=== PATIENT | female | born 1940 | race Caucasian/White ===

== ENCOUNTER → 2018-08-05 | Outpatient (REF) | payer OTHER | LOC: M LAB REF 16:20 | DX: R20.2 Paresthesia of skin (principal) | CPT/HCPCS: 82607 ==

== ENCOUNTER 2021-04-24 18:18 | Emergency (ER) | payer MEDICARE, OTHER ==
[~2021-04-24] VITALS: Ht 160 cm; Wt 64.7 kg
[2021-04-24] MEDS ORDERED: GABA-1171 (18:38)
[2021-04-24] MEDS ORDERED: LEVO50TA5 (18:38)
--- NOTE | 2021-04-24 19:12 | REP ---
INDICATION: FALL COMPARISON: None. TECHNIQUE: AP and lateral views of the left forearm FINDINGS: There is a comminuted intra-articular fracture of the distal radius with overlying soft tissue swelling. There is area of focal soft tissue swelling and possible laceration over the mid forearm. IMPRESSION: Comminuted intra-articular fracture of the distal radial metaphysis. Soft tissue swelling and possible laceration over the mid forearm. <Electronically signed by Roel Langford > 04/24/21 [id number]
--- NOTE | 2021-04-24 19:13 | REP ---
INDICATION: FALL COMPARISON: None. TECHNIQUE: AP, lateral, bilateral oblique views left wrist. FINDINGS: There is a comminuted intra-articular fracture involving the distal radial metaphysis with dorsal angulation and overlying soft tissue swelling. Remainder of the examination demonstrates osteopenia and degenerative changes. IMPRESSION: Comminuted intra-articular fracture of the distal radial metaphysis with dorsal angulation and soft tissue swelling. <Electronically signed by Roel Langford > 04/24/21 [id number]
--- NOTE | 2021-04-24 19:14 | REP ---
INDICATION: FALL COMPARISON: None. TECHNIQUE: AP, lateral, bilateral oblique views left hand. FINDINGS: Age-related osteopenia and advanced generalized osteoarthritic degenerative changes. Evaluation is limited by positioning. There appears to be a comminuted intra-articular fracture involving the distal radius. IMPRESSION: Comminuted intra-articular fracture of the distal radius. Osteopenia and advanced degenerative changes throughout the hand. <Electronically signed by Roel Langford > 04/24/21 [id number]
[2021-04-24] MEDS ORDERED: ACETAMINOPHEN 325 MG TAB PO ONE (19:40)
[2021-04-24] MEDS ORDERED: LIDOCAINE 1% MDV 20ML VIAL SC ONE (19:45)
[2021-04-24] MEDS ORDERED: CEPH500C PO (20:54)
[2021-04-24] MEDS ORDERED: OXYCODONE/APAP 5MG/325MG(BULK FOR ED) 1 TABLET PO ONE (21:05)
[2021-04-24 21:12] VITALS: BP 139/67
== END 2021-04-24 21:38 | disposition home or self-care (01) ==
LOC: M ED 18:18
DX: S52.502A Unspecified fracture of the lower end of left radius, initial encounter for closed fracture (principal); S51.812A Laceration without foreign body of left forearm, initial encounter; S50.11XA Contusion of right forearm, initial encounter; W18.39XA Other fall on same level, initial encounter; Y92.018 Other place in single-family (private) house as the place of occurrence of the external cause; E03.9 Hypothyroidism, unspecified; Z79.899 Other long term (current) drug therapy; Z79.890 Hormone replacement therapy; Z88.5 Allergy status to narcotic agent; Z88.8 Allergy status to other drugs, medicaments and biological substances

== ENCOUNTER → 2022-04-24 | Outpatient (CLI) | payer MEDICARE ==
[~2022-04-24] MED LIST: CEPH500C PO; GABA-1171; LEVO50TA5
== END ==
LOC: M WHC 11:04
PROVIDERS: ATTEND Internal Medicine
DX: Z12.31 Encounter for screening mammogram for malignant neoplasm of breast (principal); M81.0 Age-related osteoporosis without current pathological fracture; Z13.820 Encounter for screening for osteoporosis; M85.88 Other specified disorders of bone density and structure, other site; M85.851 Other specified disorders of bone density and structure, right thigh; M85.852 Other specified disorders of bone density and structure, left thigh

== ENCOUNTER 2022-07-14 18:33 | Emergency (ER) | payer MEDICARE ==
[~2022-07-14] VITALS: Ht 160 cm; Wt 66.1 kg
[2022-07-14 18:33] VITALS: BP 160/98
[2022-07-14] MEDS ORDERED: LEVO75TA4 (18:44)
[2022-07-14] MEDS ORDERED: FLUORESCEIN OPHTH 1 MG STRIP OU ONE (20:10)
[2022-07-14] MEDS ORDERED: PROPARACAINE 0.5% OPHTH SOL 15ML OU ONE (20:10)
[2022-07-14] MEDS ORDERED: CIPROFLOXACIN 0.3% OPHTH SOLN 2.5ML OD ONE (20:30)
== END 2022-07-14 20:39 | disposition home or self-care (01) ==
LOC: M ED 18:33
DX: S05.01XA Injury of conjunctiva and corneal abrasion without foreign body, right eye, initial encounter (principal); W22.8XXA Striking against or struck by other objects, initial encounter

== ENCOUNTER → 2023-03-22 | Outpatient (REF) | payer MEDICARE ==
[~2023-03-22] MED LIST changes: +LEVO75TA4
== END ==
LOC: M LAB REF 16:29
PROVIDERS: ATTEND Internal Medicine
DX: R30.0 Dysuria (principal)

== ENCOUNTER → 2024-02-05 | Outpatient (CLI) | payer MEDICARE | LOC: M PLAIMG 09:53 | PROVIDERS: ATTEND Internal Medicine | DX: R51.9 Headache, unspecified (principal) ==

== ENCOUNTER → 2024-05-27 | Outpatient (CLI) | payer MEDICARE | LOC: M WHC 12:31 | PROVIDERS: ATTEND Internal Medicine | DX: Z12.31 Encounter for screening mammogram for malignant neoplasm of breast (principal); M81.0 Age-related osteoporosis without current pathological fracture ==

== ENCOUNTER → 2024-06-02 | Outpatient (CLI) | payer MEDICARE | LOC: M WHC 09:36 | PROVIDERS: ATTEND Internal Medicine | DX: R92.2 Inconclusive mammogram (principal) ==

== ENCOUNTER → 2024-07-08 | Outpatient (REF) | payer MEDICARE ==
[2024-07-08 19:43] LABS: VITAMIN B12 LEVEL 1016 PG/ML (211-911)
[2024-07-08 19:45] LABS: FOLATE 21.5 NG/ML (>5.4)
[2024-07-08 20:08] LABS: HIV 1&2 SCREEN NEGATIVE (NEGATIVE)
== END ==
LOC: M LAB REF 16:17
PROVIDERS: ATTEND Internal Medicine
DX: Z98.84 Bariatric surgery status (principal); F03.90 Unspecified dementia, unspecified severity, without behavioral disturbance, psychotic disturbance, mood disturbance, and anxiety

== ENCOUNTER 2025-02-23 16:34 | Observation (INO) | payer MEDICARE ==
[~2025-02-23] VITALS: Ht 160 cm; Wt 56.1 kg
[~2025-02-23 16:34] MED LIST changes: -GABA-1171; +GABA-1171 PO; -LEVO75TA4; +LEVO75TA4 PO
[2025-02-23] MEDS ORDERED: SERT25TA21 PO (16:54)
[2025-02-23 18:00] LABS: HEMATOCRIT 38.7 % (36.0-47.0); HEMOGLOBIN 12.4 g/dl (12.0-15.5); MEAN CORPUSCULAR HEMOGLOBIN 30.9 pg (27.0-33.0); MEAN CORPUSCULAR VOLUME 96.5 fl (80.0-96.0); PLATELET COUNT, AUTOMATED 207 10^3/uL (150-450); RED BLOOD COUNT 4.01 10^6/uL (4.00-5.40); WHITE BLOOD COUNT 12.1 10^3/uL (4.0-10.0)
[2025-02-23 18:12] LABS: CALCIUM LEVEL 9.2 MG/DL (8.3-10.6); CREATININE FOR GFR 0.92 MG/DL (0.55-1.30); GLOMERULAR FILTRATION RATE 61.4 (>32); POTASSIUM SERUM 4.1 MMOL/L (3.5-5.1)
[2025-02-23 21:04] LABS: CK-MB VALUE MASS 1.9 NG/ML (<3.6)
[2025-02-23 21:07] LABS: MB/CK RELATIVE INDEX 0.91 (< OR =4)
[2025-02-23] MEDS: NS 500 ML IV ONE (22:04)
[2025-02-23] MEDS: KETOROLAC 30 MG/ML 1ML VIAL IV ONE (22:27)
[2025-02-23 22:33] LABS: CK-MB VALUE MASS 1.6 NG/ML (<3.6)
[2025-02-23 22:35] LABS: MB/CK RELATIVE INDEX 0.86 (< OR =4)
[2025-02-24 02:08] VITALS: BP 116/58; TEMP 97.7; O2SAT 91
[2025-02-24 05:00] VITALS: BP 103/49; TEMP 97.2; O2SAT 92
[2025-02-24 05:50] LABS: HEMATOCRIT 34.1 % (36.0-47.0); HEMOGLOBIN 10.8 g/dl (12.0-15.5); MEAN CORPUSCULAR HEMOGLOBIN 30.4 pg (27.0-33.0); MEAN CORPUSCULAR HGB CONC 31.7 g/dl (32.0-36.5); MEAN CORPUSCULAR VOLUME 96.1 fl (80.0-96.0); PLATELET COUNT, AUTOMATED 192 10^3/uL (150-450); RED BLOOD COUNT 3.55 10^6/uL (4.00-5.40)
[2025-02-24 06:21] LABS: ALBUMIN 2.8 G/DL (3.2-5.2); BILIRUBIN,TOTAL 0.5 MG/DL (0.3-1.2); CALCIUM LEVEL 8.2 MG/DL (8.3-10.6); CREATININE FOR GFR 0.91 MG/DL (0.55-1.30); GLOMERULAR FILTRATION RATE 62.2 (>32); POTASSIUM SERUM 3.6 MMOL/L (3.5-5.1); TOTAL PROTEIN 5.2 G/DL (5.7-8.2)
[2025-02-24] MEDS ORDERED: ALEN70TA82 PO (07:56)
[2025-02-24] MEDS ORDERED: ZOLO100T PO (07:56)
[2025-02-24] MEDS ORDERED: TUMS500C PO (07:56)
[2025-02-24] MEDS ORDERED: DONE5TAB82 PO (07:56)
[2025-02-24] MEDS ORDERED: HOME MED LIST COMPLETE! XX SCH (08:00)
[2025-02-24] MEDS: DOCUSATE SODIUM 100MG CAPSULE PO SCH (09:00)
[2025-02-24] MEDS: CALCIUM CARBONATE 500 MG CHEW U/D PO SCH (10:03)
[2025-02-24] MEDS: DONEPEZIL 5 MG TAB PO SCH (10:04)
[2025-02-24] MEDS: SERTRALINE 100 MG TAB PO SCH (10:04)
[2025-02-24] MEDS: LEVOTHYROXINE 75MCG TABLET (0.075MG) PO SCH (10:04)
[2025-02-24] MEDS: ENOXAPARIN 40MG/0.4ML SYRINGE (J1650 PER 10MG) SC SCH (10:06)
[2025-02-24 12:00] VITALS: BP 107/50; TEMP 97.5; O2SAT 17
[2025-02-24] MEDS: ACETAMINOPHEN 325 MG TAB PO PRN (14:52)
[2025-02-24 20:06] VITALS: BP 130/72; TEMP 97.5; O2SAT 96
[2025-02-24] MEDS: GABAPENTIN 100 MG CAP PO SCH (20:26)
[2025-02-25 05:13] VITALS: BP 125/71; TEMP 97.5; O2SAT 96
[2025-02-25 12:00] VITALS: BP 118/65; TEMP 97.3
[2025-02-25 20:58] VITALS: BP 140/64; TEMP 97.3; O2SAT 96
[2025-02-25] MEDS: traMADol 50 MG TAB PO PRN (20:59)
[2025-02-26 04:36] VITALS: BP 134/64; TEMP 97.5; O2SAT 96
[2025-02-26 12:00] VITALS: BP 130/63; TEMP 97.2; O2SAT 95
[2025-02-26] MEDS: MOM 30ML SUSPENSION UDC PO PRN (18:17)
[2025-02-26 19:26] VITALS: BP 126/70; TEMP 97.3; O2SAT 97
[2025-02-27 04:12] VITALS: BP 123/63; TEMP 97.5; O2SAT 96
[2025-02-27 07:50] LABS: BASO % 0.4 % (0.0-1.0); EOS # 0.5 10^3/uL (0.0-0.5); EOS % 4.5 % (0.0-3.0); HEMATOCRIT 38.5 % (36.0-47.0); HEMOGLOBIN 12.5 g/dl (12.0-15.5); LYMPH # 1.5 10^3/uL (1.5-5.0); LYMPH % 14.2 % (24.0-44.0); MEAN CORPUSCULAR HEMOGLOBIN 31.2 pg (27.0-33.0); MEAN CORPUSCULAR HGB CONC 32.5 g/dl (32.0-36.5); MONO # 0.9 10^3/uL (0.0-0.8); MONO % 9.2 % (2.0-8.0); NEUTROPHILS # 7.3 10^3/uL (1.5-8.5); NEUTROPHILS % 71.5 % (36.0-66.0); PLATELET COUNT, AUTOMATED 198 10^3/uL (150-450); RED BLOOD COUNT 4.01 10^6/uL (4.00-5.40); WHITE BLOOD COUNT 10.2 10^3/uL (4.0-10.0)
[2025-02-27 08:28] LABS: CALCIUM LEVEL 8.5 MG/DL (8.3-10.6); CREATININE FOR GFR 0.72 MG/DL (0.55-1.30); GLOMERULAR FILTRATION RATE 82.4 (>32); POTASSIUM SERUM 4.3 MMOL/L (3.5-5.1)
[2025-02-27] MEDS: FAMOTIDINE 20 MG TAB PO SCH (08:41)
[2025-02-27] MEDS: ACETAMINOPHEN 500 MG TAB PO SCH (08:41)
[2025-02-27] MEDS: KETOROLAC TROMETHAMINE 10 MG TAB PO SCH (09:54)
[2025-02-27 12:00] VITALS: BP 99/53; TEMP 97.9; O2SAT 99
[2025-02-27 19:44] VITALS: BP 127/64; TEMP 97.7; O2SAT 98
[2025-02-28 03:54] VITALS: BP 109/65; TEMP 97.2; O2SAT 98
[2025-02-28 12:00] VITALS: BP 110/64; TEMP 97.5; O2SAT 94
[2025-02-28 19:42] VITALS: BP 115/58; TEMP 97.3; O2SAT 99
[2025-02-28] MEDS: SENOKOT S TAB PO SCH (20:33)
[2025-03-01 04:15] VITALS: BP 134/65; TEMP 97.5; O2SAT 95
[2025-03-01 12:00] VITALS: TEMP 97.3; O2SAT 96
[2025-03-01 20:20] VITALS: BP 122/63; TEMP 97; O2SAT 96
[2025-03-02 04:46] VITALS: BP 121/60; TEMP 97.2; O2SAT 97
[2025-03-02 07:38] LABS: HEMATOCRIT 34.8 % (36.0-47.0); MEAN CORPUSCULAR HEMOGLOBIN 30.6 pg (27.0-33.0); MEAN CORPUSCULAR HGB CONC 31.6 g/dl (32.0-36.5); MEAN CORPUSCULAR VOLUME 96.7 fl (80.0-96.0); PLATELET COUNT, AUTOMATED 235 10^3/uL (150-450); WHITE BLOOD COUNT 9.3 10^3/uL (4.0-10.0)
[2025-03-02 07:52] LABS: ERYTHROCYTE SEDIMENTATION RATE 25 mm/hr (0-30)
[2025-03-02 08:17] LABS: ALBUMIN 2.6 G/DL (3.2-5.2); BILIRUBIN,TOTAL 0.2 MG/DL (0.3-1.2); C REACTIVE PROTEIN QUANTITATIV 2.22 MG/DL (<1.0); CALCIUM LEVEL 8.4 MG/DL (8.3-10.6); CHOLESTEROL RISK RATIO 4.4 (<5); CREATININE FOR GFR 0.86 MG/DL (0.55-1.30); GLOMERULAR FILTRATION RATE 66.6 (>32); HDL CHOLESTEROL 35.4 MG/DL (>40); LDL CHOLESTEROL 93.2 MG/DL (<100); NON-HDL-C 120.6 MG/DL; THYROID STIMULATING HORMONE 11.631 uIU/ML (0.55-4.78); TOTAL PROTEIN 5.5 G/DL (5.7-8.2)
[2025-03-02 12:00] VITALS: BP 118/60; TEMP 97.5; O2SAT 94
[2025-03-02 13:18] LABS: FREE T4 0.87 NG/DL (0.89-1.76)
[2025-03-02 20:26] VITALS: BP 121/60; TEMP 97.5; O2SAT 95
[2025-03-03 04:58] VITALS: BP 124/61; TEMP 96.8; O2SAT 96
[2025-03-03] MEDS ORDERED: LACTULOSE 20GM/30ML SYRUP UDC PO PRN (11:05)
[2025-03-03] MEDS ORDERED: MIRALAX *UNIT DOSE* 17GM PACKET PO PRN (11:05)
[2025-03-03] MEDS ORDERED: BISACODYL 10MG SUPP PR PRN (11:05)
[2025-03-03] MEDS ORDERED: FLEET ENEMA PR PRN (11:05)
[2025-03-03] MEDS ORDERED: MOM 30ML SUSPENSION UDC PO PRN (11:05)
[2025-03-03 12:00] VITALS: BP 146/75; TEMP 97.2; O2SAT 96
[2025-03-03] MEDS: MAGNESIUM CITRATE 300ML BTL PO ONE (12:22)
[2025-03-03] MEDS ORDERED: ONDANSETRON 4MG 2ML VIAL IV ONE (13:55)
[2025-03-03] MEDS: BISACODYL 10MG SUPP PR SCH (13:56)
[2025-03-03] MEDS: ONDANSETRON 4MG ORAL DISINTEGRATING TAB PO PRN (14:20)
[2025-03-03 21:00] VITALS: BP 149/81; TEMP 98.2; O2SAT 96
[2025-03-03] MEDS: SENOKOT S TAB PO SCH (21:00)
[2025-03-04 04:00] VITALS: BP 130/64; TEMP 97.9; O2SAT 96
[2025-03-04] MEDS ORDERED: SYNT100T PO (11:30)
[2025-03-04] MEDS ORDERED: ACET-683 PO (11:30)
[2025-03-04] MEDS ORDERED: TRAM50TA2 PO (11:30)
[2025-03-04 12:00] VITALS: BP 113/54; TEMP 97.5
== END 2025-03-04 14:42 ==
LOC: EDBD 16:34 → M ED 16:34 → M ED INP 16:35 → M MS5PR 02-24 01:57
PROVIDERS: ADMIT Family Medicine; ATTEND General Practice
DX: S22.060A Wedge compression fracture of T7-T8 vertebra, initial encounter for closed fracture (principal); S32.010A Wedge compression fracture of first lumbar vertebra, initial encounter for closed fracture; W18.39XA Other fall on same level, initial encounter; Y92.017 Garden or yard in single-family (private) house as the place of occurrence of the external cause; Y93.01 Activity, walking, marching and hiking; Z91.81 History of falling; E03.9 Hypothyroidism, unspecified; R94.6 Abnormal results of thyroid function studies; F03.90 Unspecified dementia, unspecified severity, without behavioral disturbance, psychotic disturbance, mood disturbance, and anxiety; F32.A Depression, unspecified; M81.0 Age-related osteoporosis without current pathological fracture; Z90.79 Acquired absence of other genital organ(s); Z90.49 Acquired absence of other specified parts of digestive tract; Z87.81 Personal history of (healed) traumatic fracture; Z88.4 Allergy status to anesthetic agent; Z88.8 Allergy status to other drugs, medicaments and biological substances; Z79.899 Other long term (current) drug therapy; Z79.890 Hormone replacement therapy
CPT/HCPCS: 36415; 70450; 72070; 72100; 72125; 72128; 72131; 73080; 74018; 80048; 80053; 80061; 82550; 82553; 83036; 84439; 84443; 84484; 85025; 85027; 85652; 86140; 87426; 93005; 93041; 94760; 96361; 96372; 96374; 97116; 97161; 97165; 97530; 97535; 99285; G0378; J1650; J1885

== ENCOUNTER → 2025-05-17 | Outpatient (CLI) | payer MEDICARE ==
[~2025-05-17] MED LIST changes: +ACET-683 PO; +ALEN70TA82 PO; +DONE5TAB82 PO; +SERT25TA21 PO; +SYNT100T PO; +TRAM50TA2 PO; +TUMS500C PO; +ZOLO100T PO
== END ==
LOC: M RAD 10:58
PROVIDERS: ATTEND Physician Assistant
DX: S22.060D Wedge compression fracture of T7-T8 vertebra, subsequent encounter for fracture with routine healing (principal); S32.010D Wedge compression fracture of first lumbar vertebra, subsequent encounter for fracture with routine healing

== ENCOUNTER 2025-05-22 12:04 | Inpatient (IN) | payer MEDICARE ==
[~2025-05-22] VITALS: Ht 160 cm; Wt 61.5 kg
[2025-05-22 12:59] LABS: BASO # 0.0 10^3/uL (0.0-0.2); BASO % 0.2 % (0.0-1.0); EOS # 0.0 10^3/uL (0.0-0.5); EOS % 0.0 % (0.0-3.0); LYMPH # 0.8 10^3/uL (1.5-5.0); LYMPH % 3.7 % (24.0-44.0); MONO # 1.4 10^3/uL (0.0-0.8); MONO % 6.5 % (2.0-8.0); NEUTROPHILS # 19.5 10^3/uL (1.5-8.5); NEUTROPHILS % 89.0 % (36.0-66.0); PLATELET COUNT, AUTOMATED 320 10^3/uL (150-450)
[2025-05-22 13:31] LABS: KETONE, URINE AUTO RFX 2+ mg/dL (NEGATIVE); MUCUS, URINE RFX SMALL (NEGATIVE); NITRITE, URINE AUTO RFX NEGATIVE (NEGATIVE); RBC, URINE AUTO RFX 5 /HPF (0-3); SQUAM EPITHELIAL CELL UR AURFX 1 /HPF (0-6)
[2025-05-22 13:34] LABS: LEUKOCYTE ESTERASE UR AUTO RFX TRACE (NEGATIVE); WBC, URINE AUTO RFX 19 /HPF (0-3)
[2025-05-22] MEDS: NS (Normal Saline) 0.9% 1,000 ML IV SCH (13:40)
[2025-05-22] MEDS ORDERED: ISOVUE-370 76% 100 ML VIAL As Ordered ONE (13:42)
[2025-05-22 14:00] LABS: ALT/SGPT 65.0 U/L (7.0-40); AST/SGOT 160.0 U/L (<34); CALCIUM LEVEL 9.4 MG/DL (8.3-10.6); CARBON DIOXIDE LEVEL 14.0 MMOL/L (20-31); CHLORIDE LEVEL 108.0 MMOL/L (98-107); CPK CREATINE PHOSPHOKINASE 2261.0 U/L (34-145); CREATININE FOR GFR 0.63 MG/DL (0.55-1.30); GLOMERULAR FILTRATION RATE 87.4 (>32); POTASSIUM SERUM 3.7 MMOL/L (3.5-5.1); SODIUM LEVEL 148.0 MMOL/L (136-145)
[2025-05-22] MEDS: NS (Normal Saline) 0.9% 1,000 ML IV ONE (16:29)
[2025-05-22] MEDS ORDERED: MAALOX 30 ML SUSP *UDC PO PRN (20:20)
[2025-05-22] MEDS ORDERED: MOM 30 ML SUSPENSION UDC PO PRN (20:20)
[2025-05-22 20:35] LABS: ERYTHROCYTE SEDIMENTATION RATE 30 mm/hr (0-30)
[2025-05-22 20:48] LABS: MAGNESIUM LEVEL 2.1 MG/DL (1.8-2.4)
[2025-05-22 20:50] LABS: C REACTIVE PROTEIN QUANTITATIV 7.35 MG/DL (<1.0)
[2025-05-22] MEDS: cefTRIAXone SOD 1 GM in DEXTROSE 5% (D5W) ADV/MINI-BAG 50 ML IV SCH (20:53)
[2025-05-22] MEDS: DOCUSATE SODIUM 100 MG CAPSULE PO SCH (20:58)
[2025-05-22 21:34] LABS: VENOUS BASE EXCESS -11.8 (-2.0-2.0); VENOUS HCO3 15.1 MMOL/L (23.0-27.0); VENOUS O2 SATURATION 68.9 % (60.0-80.0); VENOUS PARTIAL PRESSURE CO2 37.8 mmHg (38.0-50.0); VENOUS PARTIAL PRESSURE O2 37.5 mmHg (30.0-50.0); VENOUS PH 7.220 UNITS (7.330-7.430); VENOUS STANDARD HCO3 14.8 MMOL/L; VENOUS TOTAL CO2 16.3 MMOL/L (24.0-28.0)
[2025-05-22] MEDS ORDERED: LEVO75TA4 PO (21:41)
[2025-05-22] MEDS ORDERED: ACET-683 PO (21:41)
[2025-05-22] MEDS ORDERED: DONE10TA90 PO (21:41)
[2025-05-22] MEDS ORDERED: [UNRECOGNIZED DRUG - OTHER] PO (21:41)
[2025-05-22] MEDS ORDERED: HOME MED LIST COMPLETE! XX SCH (21:45)
[2025-05-22 21:56] LABS: INR 1.04
[2025-05-22 23:15] VITALS: BP 111/69; TEMP 98.7; O2SAT 93
[2025-05-22] MEDS: LR 1,000 ML IV SCH (23:23)
[2025-05-23 01:03] LABS: ALT/SGPT 52.0 U/L (7.0-40); AST/SGOT 113.0 U/L (<34); CALCIUM LEVEL 8.1 MG/DL (8.3-10.6); CARBON DIOXIDE LEVEL 16.0 MMOL/L (20-31); CHLORIDE LEVEL 114.0 MMOL/L (98-107); CREATININE FOR GFR 0.65 MG/DL (0.55-1.30); GLOMERULAR FILTRATION RATE 86.8 (>32); MAGNESIUM LEVEL 1.9 MG/DL (1.8-2.4); POTASSIUM SERUM 3.1 MMOL/L (3.5-5.1); SODIUM LEVEL 150.0 MMOL/L (136-145)
[2025-05-23 03:31] VITALS: BP 115/67; TEMP 98.3; O2SAT 93
[2025-05-23] MEDS: KCL 10MEQ/100ML SWI (KRUN) 10 MEQ in IV 1 EA IV SCH ×3 (06:30→20:54)
[2025-05-23 07:07] LABS: ALT/SGPT 44.0 U/L (7.0-40); AST/SGOT 86.0 U/L (<34); CALCIUM LEVEL 8.2 MG/DL (8.3-10.6); CARBON DIOXIDE LEVEL 18.0 MMOL/L (20-31); CHLORIDE LEVEL 114.0 MMOL/L (98-107); CREATININE FOR GFR 0.66 MG/DL (0.55-1.30); GLOMERULAR FILTRATION RATE 86.5 (>32); POTASSIUM SERUM 3.2 MMOL/L (3.5-5.1); SODIUM LEVEL 151.0 MMOL/L (136-145)
[2025-05-23] MEDS: ENOXAPARIN 40 MG/0.4 ML SYRINGE (J1650 PER 10MG) SC SCH (08:13)
[2025-05-23] MEDS ORDERED: POTASSIUM CHLORIDE 10MEQ SR TABLET PO ONE (08:25)
[2025-05-23 09:00] VITALS: BP 116/63; TEMP 97.2; O2SAT 92
[2025-05-23] MEDS: SODIUM BICARBONATE 150 MEQ in STERILE WATER LITER BAG 1,000 ML IV SCH (10:43)
[2025-05-23 11:43] LABS: ALT/SGPT 39.0 U/L (7.0-40); AST/SGOT 71.0 U/L (<34); CALCIUM LEVEL 8.1 MG/DL (8.3-10.6); CARBON DIOXIDE LEVEL 19.0 MMOL/L (20-31); CHLORIDE LEVEL 114.0 MMOL/L (98-107); CREATININE FOR GFR 0.63 MG/DL (0.55-1.30); GLOMERULAR FILTRATION RATE 87.4 (>32); MAGNESIUM LEVEL 1.9 MG/DL (1.8-2.4); POTASSIUM SERUM 3.3 MMOL/L (3.5-5.1); SODIUM LEVEL 150.0 MMOL/L (136-145)
[2025-05-23 11:46] LABS: CPK CREATINE PHOSPHOKINASE 731.0 U/L (34-145)
[2025-05-23 12:00] VITALS: BP 127/68; TEMP 97.9; O2SAT 92
[2025-05-23] MEDS ORDERED: GLUCOSE 4 GM CHEW PO PRN (13:35)
[2025-05-23] MEDS ORDERED: GLUCAGON INJ 1 MG VIAL SC PRN (13:35)
[2025-05-23] MEDS ORDERED: DEXTROSE 50% 50 ML SYRINGE IV PRN (13:35)
[2025-05-23 14:57] LABS: BASO # 0.0 10^3/uL (0.0-0.2); BASO % 0.1 % (0.0-1.0); EOS # 0.0 10^3/uL (0.0-0.5); EOS % 0.0 % (0.0-3.0); LYMPH # 1.2 10^3/uL (1.5-5.0); LYMPH % 8.3 % (24.0-44.0); MONO # 0.9 10^3/uL (0.0-0.8); MONO % 6.2 % (2.0-8.0); NEUTROPHILS # 12.7 10^3/uL (1.5-8.5); NEUTROPHILS % 85.0 % (36.0-66.0); PLATELET COUNT, AUTOMATED 243 10^3/uL (150-450)
[2025-05-23 15:17] LABS: CALCIUM LEVEL 8.1 MG/DL (8.3-10.6); CARBON DIOXIDE LEVEL 21.0 MMOL/L (20-31); CHLORIDE LEVEL 114.0 MMOL/L (98-107); CREATININE FOR GFR 0.63 MG/DL (0.55-1.30); GLOMERULAR FILTRATION RATE 87.4 (>32); POTASSIUM SERUM 3.4 MMOL/L (3.5-5.1); SODIUM LEVEL 151.0 MMOL/L (136-145)
[2025-05-23 16:00] VITALS: BP 126/70; TEMP 98.1; O2SAT 92
[2025-05-23 18:28] LABS: ALT/SGPT 39.0 U/L (7.0-40); AST/SGOT 62.0 U/L (<34); CALCIUM LEVEL 8.0 MG/DL (8.3-10.6); CARBON DIOXIDE LEVEL 22.0 MMOL/L (20-31); CHLORIDE LEVEL 113.0 MMOL/L (98-107); CREATININE FOR GFR 0.62 MG/DL (0.55-1.30); GLOMERULAR FILTRATION RATE 87.8 (>32); POTASSIUM SERUM 3.2 MMOL/L (3.5-5.1); SODIUM LEVEL 151.0 MMOL/L (136-145)
[2025-05-23 20:31] VITALS: BP 113/54; TEMP 99.5; O2SAT 94
[2025-05-23] MEDS: D5W 1,000 ML IV SCH (20:46)
[2025-05-23 23:42] VITALS: BP 116/60; TEMP 97.9; O2SAT 93
[2025-05-24 03:07] VITALS: BP 113/60; TEMP 98.2; O2SAT 92
[2025-05-24 04:00] VITALS: BP 101/42; TEMP 97.9; O2SAT 90
[2025-05-24 07:04] LABS: CALCIUM LEVEL 7.9 MG/DL (8.3-10.6); CARBON DIOXIDE LEVEL 26 MMOL/L (20-31); CHLORIDE LEVEL 110 MMOL/L (98-107); CREATININE FOR GFR 0.54 MG/DL (0.55-1.30); GLOMERULAR FILTRATION RATE > 90.0 (>32); MAGNESIUM LEVEL 1.7 MG/DL (1.8-2.4); POTASSIUM SERUM 3.2 MMOL/L (3.5-5.1); SODIUM LEVEL 147 MMOL/L (136-145)
[2025-05-24 08:08] VITALS: BP 98/56; TEMP 97.3; O2SAT 91
[2025-05-24] MEDS: MAG SULF 1GM/100ML (MAG RUN) 1 GM in IV 1 EA IV ONE (08:21)
[2025-05-24] MEDS: KCL 10MEQ/100ML SWI (KRUN) 10 MEQ in IV 1 EA IV SCH ×2 (09:47→18:05)
[2025-05-24] MEDS: ACETAMINOPHEN 325 MG TAB PO PRN (11:15)
[2025-05-24] MEDS: LR 500 ML IV ONE (11:17)
[2025-05-24 11:40] VITALS: BP 114/61; TEMP 97.6; O2SAT 90
[2025-05-24] MEDS: PERCOCET 5MG/325MG TAB PO PRN (14:38)
[2025-05-24 15:53] LABS: BASO # 0.0 10^3/uL (0.0-0.2); BASO % 0.2 % (0.0-1.0); EOS # 0.3 10^3/uL (0.0-0.5); EOS % 2.4 % (0.0-3.0); LYMPH # 1.6 10^3/uL (1.5-5.0); LYMPH % 14.2 % (24.0-44.0); MONO # 1.0 10^3/uL (0.0-0.8); MONO % 8.4 % (2.0-8.0); NEUTROPHILS # 8.5 10^3/uL (1.5-8.5); NEUTROPHILS % 74.4 % (36.0-66.0); PLATELET COUNT, AUTOMATED 211 10^3/uL (150-450)
[2025-05-24 16:29] LABS: CALCIUM LEVEL 7.8 MG/DL (8.3-10.6); CARBON DIOXIDE LEVEL 29.0 MMOL/L (20-31); CHLORIDE LEVEL 108.0 MMOL/L (98-107); CREATININE FOR GFR 0.6 MG/DL (0.55-1.30); GLOMERULAR FILTRATION RATE 88.5 (>32); POTASSIUM SERUM 3.4 MMOL/L (3.5-5.1); SODIUM LEVEL 146.0 MMOL/L (136-145)
[2025-05-24] MEDS ORDERED: SODIUM CHLORIDE 0.9% INJ 10 ML SYR IV PRN (17:40)
[2025-05-24 17:51] VITALS: BP 99/41; TEMP 97.9; O2SAT 90
[2025-05-24 19:23] VITALS: BP 101/44; TEMP 97.9; O2SAT 96
[2025-05-24] MEDS: DONEPEZIL 5 MG TAB PO SCH (19:35)
[2025-05-24] MEDS: GABAPENTIN 100 MG CAP PO SCH (19:36)
[2025-05-24] MEDS: POTASSIUM CHLORIDE 10% LIQ 20MEQ/15ML UDC PO SCH (19:36)
[2025-05-25] VITALS (7 sets, daily range): BP systolic 96–108; BP diastolic 46–60; TEMP 97.5–98.2; O2SAT 93–97
[2025-05-25] MEDS: LEVOTHYROXINE 75 MCG TABLET (0.075 MG) PO SCH (06:26)
[2025-05-25 07:21] LABS: CALCIUM LEVEL 7.9 MG/DL (8.3-10.6); CARBON DIOXIDE LEVEL 29.0 MMOL/L (20-31); CHLORIDE LEVEL 108.0 MMOL/L (98-107); CREATININE FOR GFR 0.61 MG/DL (0.55-1.30); GLOMERULAR FILTRATION RATE 88.1 (>32); MAGNESIUM LEVEL 1.8 MG/DL (1.8-2.4); POTASSIUM SERUM 4.0 MMOL/L (3.5-5.1); SODIUM LEVEL 142.0 MMOL/L (136-145)
[2025-05-25] MEDS: SERTRALINE 100 MG TAB PO SCH (08:45)
[2025-05-25] MEDS: SODIUM CHLORIDE 0.9% INJ 10 ML SYR IV SCH (08:46)
[2025-05-25] MEDS: PERCOCET 5MG/325MG TAB PO PRN (11:57)
[2025-05-26 04:30] VITALS: BP 122/92; TEMP 97.3; O2SAT 94
[2025-05-26 06:38] LABS: CALCIUM LEVEL 8.1 MG/DL (8.3-10.6); CARBON DIOXIDE LEVEL 31.0 MMOL/L (20-31); CHLORIDE LEVEL 108.0 MMOL/L (98-107); CREATININE FOR GFR 0.64 MG/DL (0.55-1.30); GLOMERULAR FILTRATION RATE 87.1 (>32); MAGNESIUM LEVEL 1.7 MG/DL (1.8-2.4); POTASSIUM SERUM 4.3 MMOL/L (3.5-5.1); SODIUM LEVEL 143.0 MMOL/L (136-145)
[2025-05-26 08:00] VITALS: BP 114/61; TEMP 98.1; O2SAT 95
[2025-05-26] MEDS: MAG SULF 1GM/100ML (MAG RUN) 1 GM in IV 1 EA IV SCH (08:41)
[2025-05-26 19:56] VITALS: BP 106/49; TEMP 98.8; O2SAT 96
[2025-05-26] MEDS: MAGNESIUM OXIDE 400 MG TAB PO SCH (20:19)
[2025-05-27 05:55] VITALS: BP 104/56; TEMP 97.7; O2SAT 95
[2025-05-28 02:55] VITALS: BP 107/54; TEMP 98.1; O2SAT 95
[2025-05-28] MEDS: MAGNESIUM OXIDE 400 MG TAB PO SCH (09:18)
[2025-05-29 03:58] VITALS: BP 118/60; TEMP 98.8; O2SAT 95
[2025-05-29 09:31] LABS: CALCIUM LEVEL 8.5 MG/DL (8.3-10.6); CARBON DIOXIDE LEVEL 32.0 MMOL/L (20-31); CHLORIDE LEVEL 104.0 MMOL/L (98-107); CREATININE FOR GFR 0.61 MG/DL (0.55-1.30); GLOMERULAR FILTRATION RATE 88.1 (>32); MAGNESIUM LEVEL 2.0 MG/DL (1.8-2.4); POTASSIUM SERUM 4.7 MMOL/L (3.5-5.1); SODIUM LEVEL 144.0 MMOL/L (136-145)
[2025-05-30 03:51] VITALS: BP 106/60; TEMP 97.7; O2SAT 93
[2025-05-30] MEDS: ACETAMINOPHEN *IV* 1,000 MG in IV 1 EA IV PRN (04:53)
[2025-05-30 09:58] LABS: CALCIUM LEVEL 8.6 MG/DL (8.3-10.6); CARBON DIOXIDE LEVEL 32.0 MMOL/L (20-31); CHLORIDE LEVEL 104.0 MMOL/L (98-107); CREATININE FOR GFR 0.7 MG/DL (0.55-1.30); GLOMERULAR FILTRATION RATE 85.2 (>32); MAGNESIUM LEVEL 2.3 MG/DL (1.8-2.4); POTASSIUM SERUM 4.9 MMOL/L (3.5-5.1); SODIUM LEVEL 143.0 MMOL/L (136-145)
[2025-05-30] MEDS: NYSTATIN 100,000 UNITS/GM TOPICAL PWD 15 GM TOP SCH (21:05)
[2025-05-31 08:02] LABS: CALCIUM LEVEL 8.8 MG/DL (8.3-10.6); CARBON DIOXIDE LEVEL 34.0 MMOL/L (20-31); CHLORIDE LEVEL 102.0 MMOL/L (98-107); CREATININE FOR GFR 0.75 MG/DL (0.55-1.30); GLOMERULAR FILTRATION RATE 78.5 (>32); POTASSIUM SERUM 5.0 MMOL/L (3.5-5.1); SODIUM LEVEL 143.0 MMOL/L (136-145)
[2025-05-31] MEDS: ALENDRONATE 35 MG TABLET PO SCH (08:37)
[2025-06-01 06:42] VITALS: BP 107/59; TEMP 98.1
[2025-06-02 03:49] VITALS: BP 94/49; TEMP 97.3; O2SAT 93
[2025-06-02 04:01] VITALS: BP 86/42
[2025-06-03 06:28] VITALS: BP 96/48; TEMP 98.1; O2SAT 96
[2025-06-04 05:29] VITALS: BP 99/53; TEMP 97.7; O2SAT 92
[2025-06-04] MEDS ORDERED: MAGN400T33 PO (10:24)
== END 2025-06-04 12:39 | disposition home or self-care (01) | DRG 551 ==
LOC: M ED 12:04 → EDBD 12:04 → M ED INP 20:18 → M MSPAV 22:57
PROVIDERS: ADMIT Student in an Organized Health Care Education/Training Program; ATTEND Student in an Organized Health Care Education/Training Program
DX: S32.011A Stable burst fracture of first lumbar vertebra, initial encounter for closed fracture (principal); G93.41 Metabolic encephalopathy; M62.82 Rhabdomyolysis; N39.0 Urinary tract infection, site not specified; E87.20 Acidosis, unspecified; E87.0 Hyperosmolality and hypernatremia; R13.10 Dysphagia, unspecified; F03.90 Unspecified dementia, unspecified severity, without behavioral disturbance, psychotic disturbance, mood disturbance, and anxiety; E03.9 Hypothyroidism, unspecified; R19.7 Diarrhea, unspecified; B96.20 Unspecified Escherichia coli [E. coli] as the cause of diseases classified elsewhere; M81.0 Age-related osteoporosis without current pathological fracture; E87.6 Hypokalemia; F32.A Depression, unspecified; Z66 Do not resuscitate; Z90.49 Acquired absence of other specified parts of digestive tract; Z79.890 Hormone replacement therapy; Z79.899 Other long term (current) drug therapy; Z88.5 Allergy status to narcotic agent; Z88.8 Allergy status to other drugs, medicaments and biological substances; W19.XXXA Unspecified fall, initial encounter; Y92.013 Bedroom of single-family (private) house as the place of occurrence of the external cause; Y93.9 Activity, unspecified; Y99.8 Other external cause status

== ENCOUNTER 2025-07-05 18:00 | Inpatient (IN) | payer MEDICARE ==
[~2025-07-05] VITALS: Ht 160 cm; Wt 52.1 kg
[~2025-07-05 18:00] MED LIST changes: +DONE10TA90 PO; +MAGN400T33 PO; +[UNRECOGNIZED DRUG - OTHER] PO
[2025-07-05] MEDS ORDERED: RA N1TAB PO (18:17)
[2025-07-05] MEDS ORDERED: [UNRECOGNIZED DRUG - CODE] PO (18:17)
[2025-07-05] MEDS ORDERED: ALEN70TA87 PO (18:17)
[2025-07-05] MEDS ORDERED: MED REC COMMENT (18:25)
[2025-07-05] MEDS ORDERED: HOME MED LIST COMPLETE! XX SCH (18:30)
[2025-07-05 18:46] LABS: BASO # 0.0 10^3/uL (0.0-0.2); BASO % 0.3 % (0.0-1.0); EOS # 0.2 10^3/uL (0.0-0.5); EOS % 1.4 % (0.0-3.0); LYMPH # 1.3 10^3/uL (1.5-5.0); LYMPH % 11.7 % (24.0-44.0); MONO # 0.8 10^3/uL (0.0-0.8); MONO % 7.6 % (2.0-8.0); NEUTROPHILS # 8.7 10^3/uL (1.5-8.5); NEUTROPHILS % 78.6 % (36.0-66.0); PLATELET COUNT, AUTOMATED 237 10^3/uL (150-450)
[2025-07-05] MEDS ORDERED: MORPHINE 4 MG/ML 1 ML VIAL IV PRN ×2 (18:50→20:10)
[2025-07-05 19:10] LABS: INR 0.89
[2025-07-05 19:15] LABS: CALCIUM LEVEL 8.8 MG/DL (8.3-10.6); CARBON DIOXIDE LEVEL 28.0 MMOL/L (20-31); CHLORIDE LEVEL 104.0 MMOL/L (98-107); CREATININE FOR GFR 0.67 MG/DL (0.55-1.30); GLOMERULAR FILTRATION RATE 86.1 (>32); POTASSIUM SERUM 4.0 MMOL/L (3.5-5.1); SODIUM LEVEL 142.0 MMOL/L (136-145)
[2025-07-05] MEDS: DONEPEZIL 5 MG TAB PO SCH (21:00)
[2025-07-05] MEDS: GABAPENTIN 100 MG CAP PO SCH (22:17)
[2025-07-06 03:01] VITALS: BP 104/71; TEMP 97.3; O2SAT 96
[2025-07-06] MEDS: MORPHINE 4 MG/ML 1 ML VIAL IV PRN (03:02)
[2025-07-06] MEDS: LEVOTHYROXINE 75 MCG TABLET (0.075 MG) PO SCH (05:43)
[2025-07-06 07:09] LABS: PLATELET COUNT, AUTOMATED 189 10^3/uL (150-450)
[2025-07-06 07:36] LABS: CALCIUM LEVEL 8.4 MG/DL (8.3-10.6); CARBON DIOXIDE LEVEL 28.0 MMOL/L (20-31); CHLORIDE LEVEL 104.0 MMOL/L (98-107); CREATININE FOR GFR 0.66 MG/DL (0.55-1.30); GLOMERULAR FILTRATION RATE 86.5 (>32); POTASSIUM SERUM 4.4 MMOL/L (3.5-5.1); SODIUM LEVEL 140.0 MMOL/L (136-145)
[2025-07-06] MEDS: SERTRALINE 100 MG TAB PO SCH (09:11)
[2025-07-06] MEDS: ENOXAPARIN 40 MG/0.4 ML SYRINGE (J1650 PER 10MG) SC SCH (09:12)
[2025-07-06] MEDS: ACETAMINOPHEN 325 MG TAB PO PRN (09:58)
[2025-07-06 14:00] VITALS: BP 114/70; TEMP 97.7; O2SAT 96
[2025-07-06 21:59] VITALS: BP 120/76; TEMP 97.1; O2SAT 96
[2025-07-07] VITALS (8 sets, daily range): BP systolic 107–128; BP diastolic 62–85; TEMP 96.8–97.7; O2SAT 18–97
[2025-07-07] MEDS ORDERED: ONDANSETRON 4MG 2ML VIAL As Ordered ONE (07:00)
[2025-07-07] MEDS ORDERED: GLYCOPYRROLATE INJ 0.2 MG/ML 2 ML VIAL As Ordered ONE (07:00)
[2025-07-07] MEDS ORDERED: LIDOCAINE 2% 100 MG/5 ML SDV (FOR ANES.) As Ordered ONE (07:00)
[2025-07-07] MEDS ORDERED: HYDROMORPHONE HCL 0.5 MG/0.5 ML SYRINGE As Ordered ONE (07:44)
[2025-07-07] MEDS: TRANEXAMIC ACID 100 MG/ML 10ML VIAL As Ordered ONE (08:40)
[2025-07-07] MEDS: VANCOMYCIN 1000MG/20ML VIAL As Ordered ONE (09:44)
[2025-07-07] MEDS: KETOROLAC 30 MG/ML 1 ML VIAL As Ordered ONE (09:47)
[2025-07-07] MEDS ORDERED: ONDANSETRON 4MG 2ML VIAL IV PRN ×2 (10:05→12:25)
[2025-07-07] MEDS ORDERED: HYDROMORPHONE HCL 0.5 MG/0.5 ML SYRINGE IV PRN (10:05)
[2025-07-07] MEDS ORDERED: HYDROmorphone 2 MG TAB PO PRN (12:25)
[2025-07-07] MEDS: LR 1,000 ML IV SCH (13:17)
[2025-07-07 14:44] LABS: PLATELET COUNT, AUTOMATED 212 10^3/uL (150-450)
[2025-07-07 15:12] LABS: ALT/SGPT 12.0 U/L (7.0-40); AST/SGOT 26.0 U/L (<34); CALCIUM LEVEL 8.2 MG/DL (8.3-10.6); CARBON DIOXIDE LEVEL 27.0 MMOL/L (20-31); CHLORIDE LEVEL 106.0 MMOL/L (98-107); CREATININE FOR GFR 0.61 MG/DL (0.55-1.30); GLOMERULAR FILTRATION RATE 88.1 (>32); POTASSIUM SERUM 3.9 MMOL/L (3.5-5.1); SODIUM LEVEL 141.0 MMOL/L (136-145)
[2025-07-07] MEDS: ceFAZolin SODIUM 2 GM in DEXTROSE 5% (D5W) ADV/MINI-BAG 50 ML IV SCH (16:12)
[2025-07-07] MEDS: HYDROmorphone 2 MG TAB PO PRN (18:50)
[2025-07-08] VITALS (7 sets, daily range): BP systolic 117–149; BP diastolic 68–85; TEMP 97.3–98.4; O2SAT 93–96
[2025-07-08] MEDS: FUROSEMIDE 20 MG/2 ML VIAL IV ONE (09:32)
[2025-07-08] MEDS: FERROUS SULFATE 325 MG TAB PO SCH (09:33)
[2025-07-08] MEDS: SENNA 8.6 MG TAB PO SCH (09:33)
[2025-07-08] MEDS: ASPIRIN 81 MG ENTERIC TABLET PO SCH (09:33)
[2025-07-08] MEDS: ASCORBIC ACID 500 MG TAB PO SCH (09:34)
[2025-07-08 11:11] LABS: PLATELET COUNT, AUTOMATED 217 10^3/uL (150-450)
[2025-07-08 11:31] LABS: ALT/SGPT < 9 U/L (7.0-40); AST/SGOT 28 U/L (<34); CALCIUM LEVEL 8.0 MG/DL (8.3-10.6); CARBON DIOXIDE LEVEL 27 MMOL/L (20-31); CHLORIDE LEVEL 104 MMOL/L (98-107); CREATININE FOR GFR 0.63 MG/DL (0.55-1.30); GLOMERULAR FILTRATION RATE 87.4 (>32); POTASSIUM SERUM 4.5 MMOL/L (3.5-5.1); SODIUM LEVEL 138 MMOL/L (136-145)
[2025-07-09 05:51] VITALS: BP 131/62; TEMP 97.3; O2SAT 96
[2025-07-09 07:14] LABS: PLATELET COUNT, AUTOMATED 247 10^3/uL (150-450)
[2025-07-09 07:41] LABS: ALT/SGPT < 9 U/L (7.0-40); AST/SGOT 23 U/L (<34); CALCIUM LEVEL 8.1 MG/DL (8.3-10.6); CARBON DIOXIDE LEVEL 30 MMOL/L (20-31); CHLORIDE LEVEL 106 MMOL/L (98-107); CREATININE FOR GFR 0.60 MG/DL (0.55-1.30); GLOMERULAR FILTRATION RATE 88.5 (>32); POTASSIUM SERUM 4.1 MMOL/L (3.5-5.1); SODIUM LEVEL 142 MMOL/L (136-145)
[2025-07-09 12:00] VITALS: BP 126/62; TEMP 97.5; O2SAT 93
[2025-07-09 19:31] VITALS: BP 133/75; TEMP 97.9; O2SAT 94
[2025-07-10 05:17] VITALS: BP 137/63; TEMP 97.5; O2SAT 94
[2025-07-11 05:02] VITALS: BP 135/69; TEMP 97.5; O2SAT 95
[2025-07-11] MEDS ORDERED: PILL CUTTER 1 EACH XX ONE (10:55)
[2025-07-12 05:01] VITALS: BP 141/72; TEMP 97.3; O2SAT 94
[2025-07-12 08:46] VITALS: BP 126/71
[2025-07-12 14:00] VITALS: BP 133/71; TEMP 97.5; O2SAT 95
[2025-07-13 05:54] VITALS: BP 103/60; TEMP 97.5; O2SAT 96
[2025-07-14 05:56] VITALS: BP 131/72; TEMP 97; O2SAT 96
[2025-07-14 20:00] VITALS: BP 99/70; TEMP 98.2; O2SAT 97
[2025-07-15 06:00] VITALS: BP 128/62; TEMP 98; O2SAT 97
[2025-07-15 06:31] VITALS: BP 115/94; TEMP 97.3; O2SAT 95
[2025-07-15] MEDS ORDERED: FERR1TAB8 PO (08:55)
[2025-07-15] MEDS ORDERED: ASPI81TAEC PO (08:55)
[2025-07-15] MEDS ORDERED: ASCO50TA PO (08:55)
== END 2025-07-15 12:09 | DRG 522 ==
LOC: M ED 18:00 → M ED INP 20:00 → M MS5PR 07-06 02:35
PROVIDERS: ADMIT Internal Medicine; ATTEND Internal Medicine
PROC: 0SRS0JZ Replacement of Left Hip Joint, Femoral Surface with Synthetic Substitute, Open Approach (ICD-10-PCS; principal; 2025-07-07 07:30)
DX: S72.092A Other fracture of head and neck of left femur, initial encounter for closed fracture (principal); F03.93 Unspecified dementia, unspecified severity, with mood disturbance; R13.10 Dysphagia, unspecified; E03.9 Hypothyroidism, unspecified; R26.89 Other abnormalities of gait and mobility; Z74.1 Need for assistance with personal care; W19.XXXA Unspecified fall, initial encounter; Y92.009 Unspecified place in unspecified non-institutional (private) residence as the place of occurrence of the external cause; Z79.890 Hormone replacement therapy; Z79.891 Long term (current) use of opiate analgesic; Z88.8 Allergy status to other drugs, medicaments and biological substances; Z88.5 Allergy status to narcotic agent; R09.02 Hypoxemia; M48.55XS Collapsed vertebra, not elsewhere classified, thoracolumbar region, sequela of fracture

== ENCOUNTER → 2025-07-22 | Outpatient (CLI) | payer MEDICARE ==
[~2025-07-22] MED LIST changes: +ALEN70TA87 PO; +ASCO50TA PO; +ASPI81TAEC PO; +FERR1TAB8 PO; +MED REC COMMENT; +RA N1TAB PO; +[UNRECOGNIZED DRUG - CODE] PO
== END ==
LOC: M SOG 07:23
PROVIDERS: ATTEND Neuromusculoskeletal Medicine, Sports Medicine
DX: S72.002A Fracture of unspecified part of neck of left femur, initial encounter for closed fracture (principal)

== ENCOUNTER → 2025-07-28 | Outpatient (REF) | payer MEDICARE | LOC: M LAB REF 17:46 | PROVIDERS: ATTEND Internal Medicine | DX: D64.9 Anemia, unspecified (principal) ==

== ENCOUNTER 2025-07-31 12:28 | Emergency (ER) | payer MEDICARE ==
[~2025-07-31] VITALS: Ht 160 cm; Wt 54.0 kg
[2025-07-31] MEDS: MORPHINE 4 MG/ML 1 ML VIAL IV ONE (12:49)
[2025-07-31 13:25] LABS: BASO # 0.0 10^3/uL (0.0-0.2); BASO % 0.4 % (0.0-1.0); EOS # 0.3 10^3/uL (0.0-0.5); EOS % 3.2 % (0.0-3.0); LYMPH # 1.0 10^3/uL (1.5-5.0); LYMPH % 10.6 % (24.0-44.0); MONO # 0.8 10^3/uL (0.0-0.8); MONO % 8.0 % (2.0-8.0); NEUTROPHILS # 7.5 10^3/uL (1.5-8.5); NEUTROPHILS % 77.5 % (36.0-66.0); PLATELET COUNT, AUTOMATED 302 10^3/uL (150-450)
[2025-07-31 13:37] LABS: INR 0.92
[2025-07-31] MEDS: MORPHINE 4 MG/ML 1 ML VIAL IV PRN (13:39)
[2025-07-31 13:45] LABS: ALT/SGPT < 9 U/L (7.0-40); AST/SGOT 16 U/L (<34); CALCIUM LEVEL 8.6 MG/DL (8.3-10.6); CARBON DIOXIDE LEVEL 28 MMOL/L (20-31); CHLORIDE LEVEL 105 MMOL/L (98-107); CREATININE FOR GFR 0.75 MG/DL (0.55-1.30); GLOMERULAR FILTRATION RATE 78.5 (>32); POTASSIUM SERUM 4.0 MMOL/L (3.5-5.1); SODIUM LEVEL 143 MMOL/L (136-145)
[2025-07-31] MEDS: NS (Normal Saline) 0.9% 1,000 ML IV SCH (15:43)
[2025-07-31 17:06] VITALS: BP 109/56; TEMP 98.3; O2SAT 96
== END 2025-07-31 17:27 | disposition home or self-care (01) ==
LOC: EDBD 12:28 → M ED 12:28
DX: T84.021A Dislocation of internal left hip prosthesis, initial encounter (principal); W01.0XXA Fall on same level from slipping, tripping and stumbling without subsequent striking against object, initial encounter; Y92.009 Unspecified place in unspecified non-institutional (private) residence as the place of occurrence of the external cause; Y93.9 Activity, unspecified; Y99.9 Unspecified external cause status; F03.90 Unspecified dementia, unspecified severity, without behavioral disturbance, psychotic disturbance, mood disturbance, and anxiety; Z88.8 Allergy status to other drugs, medicaments and biological substances; Z79.899 Other long term (current) drug therapy